=== PATIENT | female | born 1990 | race Caucasian/White ===

== ENCOUNTER 2018-12-01 22:00 | Inpatient (IN) | payer MEDICAID ==
[~2018-12-01] VITALS: Ht 165.1 cm; Wt 52.2 kg
[~2018-12-01 22:00] MED LIST: ALBU18HF2 INH; GABA600T13 PO; GUAI118S13 PO; HUM7525 SQ; IBUP-1985 PO; LANTUS SQ; LOPE2CAP PO; TRAZ-219 PO; VENL37.55 PO
[2018-12-02] VITALS (20 sets, daily range): BP systolic 101–170; BP diastolic 52–115
--- NOTE | 2018-12-02 03:45 | NUR ---
Patient arrived via [facility]. Transport report from Roni, Detective Bureau Chief. Patient had an uneventful transport. Was administered 0.5mg Ativan IV at [facility]. Patient with D5 1/2 normal saline at 75ml/hr running. Patient with BiPap in place FiO2 75%. PAtient transferred to hospital bed from [facility] with slide board. Patient placed on BiPap unit by RT. Vital signs assessed. Chest X-Ray ordered to confirm placement of PICC to right upper arm. Right upper arm Single lumen extended. IV is an extended confirmed by x-ray to right arm.
[2018-12-02] MEDS ORDERED: acetaminophen 650mg rectal suppository RC PRN (03:50)
[2018-12-02] MEDS ORDERED: glucagon, human recombinant 1mg kit SUBCUT PRN (03:50)
[2018-12-02] MEDS ORDERED: morphine 4 MG/ML inj SYRINge IV PRN ×2 (03:50)
[2018-12-02] MEDS ORDERED: dextrose 50%-water 50ml dispensing syringe IV PRN ×2 (03:50)
[2018-12-02] MEDS ORDERED: dextrose ORAL solution 15 GM/59 ML bottle PO PRN ×2 (03:50)
[2018-12-02] MEDS ORDERED: acetaminophen 325mg tablet PO PRN ×2 (03:50)
[2018-12-02] MEDS ORDERED: MESSAGE TO PHARMACY PO ONE (03:50)
[2018-12-02] MEDS ORDERED: albuterol 2.5 MG/3 ML nebule NEB PRN (04:10)
[2018-12-02 04:21] LABS: ABG BASE EXCESS -6.2 mmol/L (-2.0-3.0); ABG HCO3 19.8 mmol/L (22.0-26.0); ABG OXYGEN SATURATION 99.5 % (95-98); ABG PCO2 (T) 41.3 mmHg (32.0-45.0); ABG PH (T) 7.299 (7.350-7.450); ABG PO2 (T) 258.8 mmHg (83-108); ALLEN'S TEST Positive; FCOHb 0.3 % (0.5-1.5); FMetHb 0.2 % (0.3-1.12); RESPIRATORY RATE 12 b/min; RESPIRATORY RATE (OBSERVED) 28 b/min; TOTAL HEMOGLOBIN 11.3 G/dl (12.0-16.0)
[2018-12-02] MEDS ORDERED: HYDROmorphone 1 mg/ml syringe IV PRN (04:25)
--- NOTE | 2018-12-02 04:45 | NUR ---
Patient belongings: Patient had purse with her at the bedside. Wallet containing $105 nichole, change, State issued ID and SS card., Bank card. Admitting called to place wallet in safe. Medications sent to pharmacy. Purse also contained one up opened pack of cigarettes, security shift manager, glucometer, and other items ( chapstick, mints, etc)
--- NOTE | 2018-12-02 04:51 | NUR ---
wound care pictures obtained, wound care consult placed message left.
[2018-12-02] MEDS ORDERED: LORazepam 2 mg/ml vial IV PRN (05:10)
[2018-12-02] MEDS ORDERED: furosemide 20 MG/2 ML vial IV ONE (05:10)
[2018-12-02 06:03] LABS: BASOPHILS # (AUTO) 0.1 X10'3 (0-0.2); BASOPHILS % (AUTO) 0.4 % (0-1); EOSINOPHILS # (AUTO) 0.5 X10'3 (0-0.9); HEMATOCRIT 33.9 % (35.0-45.0); HEMOGLOBIN 10.7 g/dl (12.0-16.0); LYMPHOCYTES # (AUTO) 1.4 X10'3 (1.1-4.8); LYMPHOCYTES % (AUTO) 5.8 % (21-51); MEAN CORPUSCULAR HEMOGLOBIN 29.7 PG (27.0-31.0); MEAN CORPUSCULAR HGB CONC 31.6 g/dL (33.0-36.5); MEAN PLATELET VOLUME 9.8 FL (7.4-10.4); MONOCYTES # (AUTO) 1.3 X10'3 (0-0.9); MONOCYTES % (AUTO) 5.5 % (2-12); NEUTROPHILS # (AUTO) 20.1 X10'3 (1.8-7.7); NEUTROPHILS % (AUTO) 86.3 % (42-75); PLATELET COUNT 286 X10'3 (140-440); RED CELL DISTRIBUTION WIDTH 15.9 % (11.5-14.5); WHITE BLOOD COUNT 23.2 X10'3 (4.5-11.0)
[2018-12-02] MEDS: HYDROmorphone inj. 0.5 MG/0.5 ML DISP.SYRIN IV PRN ×5 (06:10→22:24)
[2018-12-02 06:17] LABS: ALANINE AMINOTRANSFERASE 18 U/L (12-78); ALBUMIN 1.8 G/DL (3.4-5.0); ALBUMIN/GLOBULIN RATIO 0.4 (1.1-1.5); ALKALINE PHOSPHATASE 282 IU/L (46-116); ANION GAP 12 (8-16); ASPARTATE AMINO TRANSFERASE 36 U/L (10-37); BILIRUBIN,TOTAL 0.4 MG/DL (0.1-1.0); BLOOD UREA NITROGEN 16 MG/DL (7-18); BUN/CREATININE RATIO 13.1 (6.6-38.0); CALCIUM 8.4 MG/DL (8.5-10.1); CHLORIDE 107 MMOL/L (99-107); CREATININE 1.22 MG/DL (0.40-0.90); GLUCOSE 358 MG/DL (70-104); POTASSIUM 4.2 MMOL/L (3.5-5.1); SODIUM 139 MMOL/L (135-145); TOTAL CARBON DIOXIDE 20.4 MMOL/L (24-32); TOTAL PROTEIN 6.3 G/DL (6.4-8.2); eGFR 53 ML/MIN
--- NOTE | 2018-12-02 06:26 | NUR ---
report given to rec rn plan of care reviewed
[2018-12-02 06:27] LABS: D-DIMER 5.73 MG/L FEU (0-0.50); INR 1.2 INR; MAGNESIUM 1.8 MG/DL (1.5-2.4); PARTIAL THROMBOPLASTIN TIME 39 SECONDS (22-32); PROTHROMBIN TIME 11.9 SECONDS (9.0-12.0); TROPONIN I < 0.04 NG/ML (0.0-0.05)
[2018-12-02 06:30] LABS: HEMOGLOBIN A1C 9.4 % (4.5-6.2)
[2018-12-02 06:40] LABS: PLATELET ESTIMATE NORMAL; TOTAL CELLS COUNTED 100
[2018-12-02 06:41] LABS: TOXIC GRANULATION 1+
[2018-12-02] MEDS: normal saline 1000ml 1,000 ML IV SCH (07:00)
[2018-12-02] MEDS: insulin Lispro (HumaLOG) vial - multi-dose SQ SCH ×4 (07:13→21:01)
[2018-12-02] MEDS: ondansetron/PF 4mg/2ml inj IV PRN ×2 (07:17→21:24)
[2018-12-02] MEDS: piperacillin/tazo 3.375gm/50ml 50 ML IV SCH ×3 (07:30→22:24)
[2018-12-02] MEDS ORDERED: gabapentin 300mg capsule PO SCH (08:00)
[2018-12-02] MEDS ORDERED: FONDAPARINUX (ARIXTRA) 7.5 MG/0.6 ML SYRINGE SQ SCH (08:00)
[2018-12-02] MEDS ORDERED: lisinopril 20mg tablet PO SCH (08:00)
[2018-12-02] MEDS ORDERED: vancomycin/NS 1 GM ADD-VANTAGE 250 ML IV SCH (08:00)
[2018-12-02] MEDS: ipratropium/albuterol 3ml nebule NEB SCH ×5 (08:04→22:51)
[2018-12-02] MEDS ORDERED: fondaparinux 2.5 MG/0.5 ML syringe SUBCUT SCH ×2 (09:06→11:20)
[2018-12-02] MEDS ORDERED: TRAM50TA2 PO ×2 (09:09→16:50)
[2018-12-02] MEDS: aspirin 81mg tablet.DR PO SCH (10:02)
[2018-12-02] MEDS: CITALOpram 10mg tablet PO SCH (10:02)
[2018-12-02] MEDS: docusate sod 100mg capsule PO SCH ×2 (10:02→20:00)
[2018-12-02] MEDS: pantoprazole 40 MG vial IV SCH (10:03)
[2018-12-02] MEDS: QUEtiapine 25mg tablet PO SCH (10:03)
[2018-12-02] MEDS: pregabalin 25mg capsule PO SCH ×2 (10:03→20:48)
[2018-12-02] MEDS: methylPREDNISolone sod succ 125mg/2ml vial IV SCH ×3 (10:03→20:48)
[2018-12-02] MEDS: VANCOMYCIN 750MG IV in NS 250 ML IV SCH ×2 (10:04→20:47)
[2018-12-02] MEDS ORDERED: fondaparinux 2.5 MG/0.5 ML syringe SUBCUT ONE (11:20)
[2018-12-02] MEDS: gabapentin 300mg capsule PO SCH ×2 (12:06→20:48)
[2018-12-02] MEDS ORDERED: INSU300I3 SQ (13:30)
[2018-12-02] MEDS: furosemide 20 MG/2 ML vial IV SCH ×2 (14:04→20:48)
--- NOTE | 2018-12-02 15:55 | NUR ---
DM consult, A1C is 9.4 and history of type 1 diabetes; patient needs written DM education handout with verbal review and referral to outpatient DM education class when she is able, currently on BiPap and will become very short of breath, is not appropriate for bedside education. Patient admitted with acute respiratory distress syndrome and DKA, DKA is resolved per MD note. Recommend: 1. When medically indicated advance diet to carb controlled 2. Continue bowel care 3. Weight per rx 4. Education: provide written and verbal DM education when pt is able Addendum: 12/02/18 at [address] Amended: Links added.
--- NOTE | 2018-12-02 16:22 | NUR ---
off BIPAP to NC Patient taken off BIPAP placed on NC 4L has handled well so far.
[2018-12-02] MEDS ORDERED: LISI-600 PO (16:50)
[2018-12-02] MEDS ORDERED: LORA1TAB PO (16:50)
[2018-12-02] MEDS ORDERED: LOPE2CAP PO (16:50)
[2018-12-02] MEDS ORDERED: PREG50CA PO (16:50)
[2018-12-02] MEDS ORDERED: FOND7.5D9 SQ (16:50)
[2018-12-02] MEDS ORDERED: CITA20TA19 PO (16:50)
[2018-12-02] MEDS ORDERED: ASPI-611 PO (16:50)
[2018-12-02] MEDS ORDERED: ONDA4TAB12 PO (16:50)
[2018-12-02] MEDS ORDERED: QUET50TA22 PO (16:50)
--- NOTE | 2018-12-02 18:30 | NUR ---
Patient in room CICU 2013. I have received report from CRUZ Lynn and had the opportunity to ask questions and assume patient care. Patient is resting comfortably in hospital bed, she has asked for broth or food. I advised her I will check with her MD as she is NPO at this time.
--- NOTE | 2018-12-02 20:00 | NUR ---
Patient continues to ask for food, I JIM Whitney and she gave order for clear liquid diet as tolerated.
--- NOTE | 2018-12-02 21:00 | NUR ---
Talked with JIM Teran regarding patients high BP 170/105. Patient has been fighting BP cuff all night, she either bends arm or pulls at cuff when BP is being taken. Per September, continue to monitor she noted that her lisinopril was d/c and I could give her a dose if BP continue to be high.
[2018-12-02] MEDS: insulin glargine (Lantus) pen - multi-dose SQ SCH (21:02)
[2018-12-03] VITALS (24 sets, daily range): BP systolic 120–175; BP diastolic 67–112
[2018-12-03] MEDS: HYDROmorphone inj. 0.5 MG/0.5 ML DISP.SYRIN IV PRN ×5 (02:25→21:03)
[2018-12-03] MEDS: furosemide 20 MG/2 ML vial IV SCH ×4 (02:25→19:14)
[2018-12-03] MEDS: methylPREDNISolone sod succ 125mg/2ml vial IV SCH ×2 (02:25→08:11)
[2018-12-03] MEDS: ipratropium/albuterol 3ml nebule NEB SCH ×6 (02:57→23:01)
[2018-12-03] MEDS: ondansetron/PF 4mg/2ml inj IV PRN (04:12)
[2018-12-03] MEDS ORDERED: lisinopril 20mg tablet PO ONE (05:20)
[2018-12-03] MEDS: piperacillin/tazo 3.375gm/50ml 50 ML IV SCH ×3 (05:25→23:06)
[2018-12-03 05:52] LABS: BASOPHILS % (AUTO) 0.3 % (0-1); EOSINOPHILS % (AUTO) 0.2 % (0-6); HEMATOCRIT 35.1 % (35.0-45.0); HEMOGLOBIN 11.4 g/dl (12.0-16.0); LYMPHOCYTES # (AUTO) 0.9 X10'3 (1.1-4.8); LYMPHOCYTES % (AUTO) 7.1 % (21-51); MEAN CORPUSCULAR HEMOGLOBIN 30.1 PG (27.0-31.0); MEAN CORPUSCULAR HGB CONC 32.4 g/dL (33.0-36.5); MEAN CORPUSCULAR VOLUME 93.2 FL (78-98); MEAN PLATELET VOLUME 9.4 FL (7.4-10.4); MONOCYTES # (AUTO) 0.5 X10'3 (0-0.9); NEUTROPHILS # (AUTO) 10.8 X10'3 (1.8-7.7); NEUTROPHILS % (AUTO) 88.4 % (42-75); PLATELET COUNT 331 X10'3 (140-440); RED BLOOD COUNT 3.77 X10'6 (4.20-5.60); WHITE BLOOD COUNT 12.2 X10'3 (4.5-11.0)
[2018-12-03 06:19] LABS: ALANINE AMINOTRANSFERASE 17 U/L (12-78); ALBUMIN 1.9 G/DL (3.4-5.0); ALBUMIN/GLOBULIN RATIO 0.4 (1.1-1.5); ALKALINE PHOSPHATASE 261 IU/L (46-116); ANION GAP 8 (8-16); ASPARTATE AMINO TRANSFERASE 17 U/L (10-37); BILIRUBIN,TOTAL 0.3 MG/DL (0.1-1.0); BLOOD UREA NITROGEN 20 MG/DL (7-18); BUN/CREATININE RATIO 17.9 (6.6-38.0); CALCIUM 8.4 MG/DL (8.5-10.1); CHLORIDE 103 MMOL/L (99-107); CREATININE 1.12 MG/DL (0.40-0.90); GLUCOSE 385 MG/DL (70-104); MAGNESIUM 1.2 MG/DL (1.5-2.4); PHOSPHORUS 3.4 MG/DL (2.3-4.5); SODIUM 139 MMOL/L (135-145); TOTAL CARBON DIOXIDE 28.1 MMOL/L (24-32); TOTAL PROTEIN 6.5 G/DL (6.4-8.2); eGFR 59 ML/MIN
[2018-12-03 06:27] LABS: INR 1.2 INR; PROTHROMBIN TIME 11.8 SECONDS (9.0-12.0)
[2018-12-03 06:28] LABS: PARTIAL THROMBOPLASTIN TIME 33 SECONDS (22-32)
--- NOTE | 2018-12-03 06:34 | NUR ---
Problems reprioritized. Patient report given, questions answered & plan of care reviewed with CRUZ Escobedo.
--- NOTE | 2018-12-03 07:00 | NUR ---
Patient in room CICU 2013. I have received report from CRUZ Bonilla and had the opportunity to ask questions and assume patient care.
[2018-12-03] MEDS ORDERED: labetalol 100mg tablet PO ONE (07:55)
[2018-12-03] MEDS: docusate sod 100mg capsule PO SCH ×2 (08:00→19:14)
[2018-12-03] MEDS: VANCOMYCIN 750MG IV in NS 250 ML IV SCH ×2 (08:10→20:58)
[2018-12-03] MEDS: pantoprazole 40 MG vial IV SCH (08:12)
[2018-12-03] MEDS: pregabalin 25mg capsule PO SCH ×2 (08:12→19:13)
[2018-12-03] MEDS: aspirin 81mg tablet.DR PO SCH (08:12)
[2018-12-03] MEDS: CITALOpram 10mg tablet PO SCH (08:12)
[2018-12-03] MEDS: QUEtiapine 25mg tablet PO SCH ×2 (08:12→20:54)
[2018-12-03] MEDS: gabapentin 300mg capsule PO SCH ×3 (08:13→20:54)
[2018-12-03] MEDS ORDERED: citalopram 20mg tablet PO SCH (08:35)
[2018-12-03] MEDS ORDERED: traMADol 50MG tablet PO PRN (08:35)
[2018-12-03] MEDS ORDERED: loperamide 2mg capsule PO PRN (08:35)
[2018-12-03] MEDS ORDERED: LORazepam 1 MG tablet PO PRN (08:35)
[2018-12-03] MEDS ORDERED: ondansetron 4mg rapidly disintigrating tab PO PRN (08:35)
[2018-12-03] MEDS: insulin Lispro (HumaLOG) vial - multi-dose SQ SCH ×4 (08:45→21:03)
[2018-12-03] MEDS: FONDAPARINUX (ARIXTRA) 7.5 MG/0.6 ML SYRINGE SQ SCH (09:15)
[2018-12-03] MEDS ORDERED: potassium Cl 20 mEq SR tablet PO PRN (10:45)
[2018-12-03] MEDS: traMADol 50MG tablet PO PRN ×2 (11:38→19:13)
[2018-12-03] MEDS: magnesium Cl slow-release 64mg tablet PO PRN ×2 (11:38→20:54)
--- NOTE | 2018-12-03 14:29 | NUR ---
DM consult, A1C is 9.4 and history of type 1 diabetes; attempted education today RD visited pt at bedside and was using BiPaP at that time. Carb controlled lunch was not eaten yet. Per nurse BiPaP had been on for only 15 minutes. Patient was emotional and wanting to eat, attempted to explain A1C and patient stated she already knows what it meals. Written DM education was left at bedside. She has no chewing or swallowing difficulty when BiPaP is off. Addendum: 12/03/18 at [address] Amended: Links added.
--- NOTE | 2018-12-03 14:30 | NUR ---
Pt had one episode of desaturation and need for bipap. Pt's sats read 30-40% with good pleth and pulse matching ekg rate. New pulse ox obtained and placed on 2 different fingers and both ears to verify reading. Mobile pulse ox also used. All had same reading of sats in 30s-40s. Pt awake, talking, playing on her phone and in no signs of respiratory distress. Placed pt on bipap at 100% FiO2 and pt's sats jumped back up to 100%. Left pt on bipap for 10 mins. Pt talking and asking for bipap to be removed the entire time. Stat CXR and ABG obtained. Dr. Oliveira notified and gave verbal orders to keep pt in ICU overnight. Will continue to monitor
[2018-12-03 15:51] LABS: ABG BASE EXCESS 7.3 mmol/L (-2.0-3.0); ABG HCO3 32.6 mmol/L (22.0-26.0); ABG OXYGEN SATURATION 95.8 % (95-98); ABG PH (T) 7.441 (7.350-7.450); ABG PO2 (T) 76.5 mmHg (83-108); ALLEN'S TEST Positive; FCOHb 0.2 % (0.5-1.5); FLOW 3 L/min; FMetHb 0.3 % (0.3-1.12); FO2Hb 95.3 % (94-100); TOTAL HEMOGLOBIN 12.1 G/dl (12.0-16.0)
--- NOTE | 2018-12-03 18:14 | NUR ---
Problems reprioritized. Patient report given, questions answered & plan of care reviewed with CRUZ Bacon.
--- NOTE | 2018-12-03 18:15 | NUR ---
Patient in room CICU 2013. I have received report from CRUZ Escobedo, and had the opportunity to ask questions and assume patient care.
--- NOTE | 2018-12-03 18:30 | NUR ---
Pt served dinner without incident. Pt able to feed self, no needs or requests at this time.
[2018-12-03] MEDS: metoprolol tartrate 25mg tablet PO SCH (19:13)
[2018-12-03] MEDS: lisinopril 20mg tablet PO SCH (19:13)
[2018-12-03] MEDS ORDERED: VANCOMYCIN LEVEL IV NR (20:30)
[2018-12-03] MEDS: insulin glargine (Lantus) pen - multi-dose SQ SCH (21:02)
--- NOTE | 2018-12-03 22:00 | NUR ---
Vanco trough 18.6. No changes to current vanco infusion necessary per Marcin in pharmacy.
[2018-12-03] MEDS: normal saline 1000ml 1,000 ML IV SCH (23:03)
--- NOTE | 2018-12-03 23:30 | NUR ---
Pt states that she feels like her "blood sugar is low". BG 109, pt states that this is low for her. Snack given.
[2018-12-04] VITALS (14 sets, daily range): BP systolic 92–141; BP diastolic 53–89
[2018-12-04] MEDS: furosemide 20 MG/2 ML vial IV SCH ×4 (01:11→20:27)
[2018-12-04] MEDS: HYDROmorphone inj. 0.5 MG/0.5 ML DISP.SYRIN IV PRN ×5 (01:11→20:51)
[2018-12-04 01:46] LABS: ALANINE AMINOTRANSFERASE 14 U/L (12-78); ALBUMIN 2.1 G/DL (3.4-5.0); ALBUMIN/GLOBULIN RATIO 0.5 (1.1-1.5); ALKALINE PHOSPHATASE 229 IU/L (46-116); ANION GAP 2 (8-16); ASPARTATE AMINO TRANSFERASE 10 U/L (10-37); BILIRUBIN,TOTAL 0.3 MG/DL (0.1-1.0); BLOOD UREA NITROGEN 20 MG/DL (7-18); BUN/CREATININE RATIO 16.9 (6.6-38.0); CALCIUM 8.1 MG/DL (8.5-10.1); CHLORIDE 100 MMOL/L (99-107); CREATININE 1.18 MG/DL (0.40-0.90); GLUCOSE 140 MG/DL (70-104); PHOSPHORUS 2.2 MG/DL (2.3-4.5); SODIUM 140 MMOL/L (135-145); TOTAL CARBON DIOXIDE 38.4 MMOL/L (24-32); TOTAL PROTEIN 6.4 G/DL (6.4-8.2); eGFR 55 ML/MIN
[2018-12-04 01:53] LABS: POTASSIUM 2.6 MMOL/L (3.5-5.1)
[2018-12-04 01:55] LABS: BASOPHILS # (AUTO) 0.1 X10'3 (0-0.2); BASOPHILS % (AUTO) 0.4 % (0-1); EOSINOPHILS # (AUTO) 0.5 X10'3 (0-0.9); EOSINOPHILS % (AUTO) 3.4 % (0-6); HEMATOCRIT 33.9 % (35.0-45.0); HEMOGLOBIN 11.2 g/dl (12.0-16.0); LYMPHOCYTES # (AUTO) 2.3 X10'3 (1.1-4.8); LYMPHOCYTES % (AUTO) 15.3 % (21-51); MEAN CORPUSCULAR HEMOGLOBIN 30.5 PG (27.0-31.0); MEAN CORPUSCULAR HGB CONC 33.1 g/dL (33.0-36.5); MEAN CORPUSCULAR VOLUME 92.3 FL (78-98); MEAN PLATELET VOLUME 8.6 FL (7.4-10.4); MONOCYTES # (AUTO) 1.3 X10'3 (0-0.9); MONOCYTES % (AUTO) 8.7 % (2-12); NEUTROPHILS # (AUTO) 10.7 X10'3 (1.8-7.7); NEUTROPHILS % (AUTO) 72.2 % (42-75); PLATELET COUNT 385 X10'3 (140-440); RED BLOOD COUNT 3.67 X10'6 (4.20-5.60); RED CELL DISTRIBUTION WIDTH 15.5 % (11.5-14.5); WHITE BLOOD COUNT 14.9 X10'3 (4.5-11.0)
[2018-12-04 01:56] LABS: INR 1.2 INR; PARTIAL THROMBOPLASTIN TIME 33 SECONDS (22-32); PROTHROMBIN TIME 12.3 SECONDS (9.0-12.0)
[2018-12-04] MEDS: magnesium Cl slow-release 64mg tablet PO PRN ×2 (02:15→07:32)
[2018-12-04] MEDS: potassium Cl 20 mEq SR tablet PO PRN ×3 (02:15→13:25)
[2018-12-04] MEDS: ipratropium/albuterol 3ml nebule NEB SCH ×6 (03:00→23:00)
[2018-12-04] MEDS ORDERED: lactulose 20gm/30ml cup PO PRN (03:50)
[2018-12-04] MEDS: piperacillin/tazo 3.375gm/50ml 50 ML IV SCH ×3 (05:32→22:48)
--- NOTE | 2018-12-04 06:21 | NUR ---
Problems reprioritized. Patient report given, questions answered & plan of care reviewed with CRUZ Escobedo.
--- NOTE | 2018-12-04 06:36 | NUR ---
Patient in room CICU 2013. I have received report from CRUZ Bacon and had the opportunity to ask questions and assume patient care.
[2018-12-04] MEDS: FONDAPARINUX (ARIXTRA) 7.5 MG/0.6 ML SYRINGE SQ SCH (07:32)
[2018-12-04] MEDS: CITALOpram 10mg tablet PO SCH (07:32)
[2018-12-04] MEDS: pregabalin 25mg capsule PO SCH ×2 (07:32→20:28)
[2018-12-04] MEDS: pantoprazole 40mg Tablet.DR PO SCH (07:33)
[2018-12-04] MEDS: metoprolol tartrate 25mg tablet PO SCH ×2 (07:33→20:28)
[2018-12-04] MEDS: aspirin 81mg tablet.DR PO SCH (07:33)
[2018-12-04] MEDS: lisinopril 20mg tablet PO SCH ×2 (07:33→20:28)
[2018-12-04] MEDS: gabapentin 300mg capsule PO SCH ×3 (07:34→20:29)
[2018-12-04] MEDS: potassium chloride 10mEq ER tablet PO SCH ×2 (07:34→20:29)
[2018-12-04] MEDS: loperamide 2mg capsule PO PRN ×2 (07:34→19:03)
[2018-12-04] MEDS: docusate sod 100mg capsule PO SCH ×2 (07:41→20:00)
[2018-12-04] MEDS: VANCOMYCIN 750MG IV in NS 250 ML IV SCH ×2 (08:44→20:50)
[2018-12-04] MEDS: insulin Lispro (HumaLOG) vial - multi-dose SQ SCH ×3 (08:51→21:34)
--- NOTE | 2018-12-04 14:20 | NUR ---
Gave report to surgical instrument maker Shakira. Pt transferred to surgical with tele via wheelchair. All belongings sent with pt.
[2018-12-04 16:54] LABS: ALANINE AMINOTRANSFERASE 18 U/L (12-78); ALBUMIN 2.2 G/DL (3.4-5.0); ALBUMIN/GLOBULIN RATIO 0.5 (1.1-1.5); ALKALINE PHOSPHATASE 226 IU/L (46-116); ANION GAP 7 (8-16); ASPARTATE AMINO TRANSFERASE 11 U/L (10-37); BILIRUBIN,TOTAL 0.3 MG/DL (0.1-1.0); BLOOD UREA NITROGEN 18 MG/DL (7-18); CALCIUM 7.9 MG/DL (8.5-10.1); CHLORIDE 101 MMOL/L (99-107); CREATININE 1.06 MG/DL (0.40-0.90); GLUCOSE 72 MG/DL (70-104); POTASSIUM 3.6 MMOL/L (3.5-5.1); SODIUM 144 MMOL/L (135-145); TOTAL CARBON DIOXIDE 35.9 MMOL/L (24-32); TOTAL PROTEIN 6.6 G/DL (6.4-8.2); eGFR 63 ML/MIN
--- NOTE | 2018-12-04 18:47 | NUR ---
Recieved report from Shakira ARROYO pt is awake and requesting a BSC
--- NOTE | 2018-12-04 19:00 | NUR ---
pt refused humalog due to BS being 70, pt was concerned that her blood sugar would bottom out if she received insulin, informed pt we will check BS at 2100
[2018-12-04] MEDS: ondansetron/PF 4mg/2ml inj IV PRN (19:02)
[2018-12-04] MEDS: lactobacillus rhamnosus 10,000 MMU CELLS/CAPSULE PO SCH (20:29)
--- NOTE | 2018-12-04 20:30 | NUR ---
Rechecked pts B/P it was 128/71, HR:108
[2018-12-04] MEDS: QUEtiapine 25mg tablet PO SCH ×2 (20:35→21:31)
[2018-12-04] MEDS: insulin glargine (Lantus) pen - multi-dose SQ SCH (21:35)
--- NOTE | 2018-12-04 22:00 | NUR ---
pt has been picking at scabs on her head causing her to bleed, pt refused shower until the morning time when her mother was her to help her and so her mother could bring her shampoo, informed pt we have plenty of shampoo and aides to help she wanted to wait till morning, wrapped pts head in kerlex
[2018-12-05 00:09] VITALS: BP 120/84
[2018-12-05] MEDS: HYDROmorphone inj. 0.5 MG/0.5 ML DISP.SYRIN IV PRN ×5 (00:55→18:31)
[2018-12-05] MEDS: furosemide 20 MG/2 ML vial IV SCH ×4 (02:00→20:00)
[2018-12-05] MEDS: ipratropium/albuterol 3ml nebule NEB SCH ×6 (03:00→23:00)
[2018-12-05 03:54] LABS: BASOPHILS # (AUTO) 0.1 X10'3 (0-0.2); BASOPHILS % (AUTO) 1.2 % (0-1); EOSINOPHILS # (AUTO) 1.2 X10'3 (0-0.9); EOSINOPHILS % (AUTO) 10.2 % (0-6); HEMATOCRIT 41.1 % (35.0-45.0); LYMPHOCYTES # (AUTO) 3.8 X10'3 (1.1-4.8); LYMPHOCYTES % (AUTO) 33.4 % (21-51); MEAN CORPUSCULAR HEMOGLOBIN 29.7 PG (27.0-31.0); MEAN CORPUSCULAR HGB CONC 31.6 g/dL (33.0-36.5); MEAN CORPUSCULAR VOLUME 94.2 FL (78-98); MEAN PLATELET VOLUME 8.5 FL (7.4-10.4); MONOCYTES # (AUTO) 1.2 X10'3 (0-0.9); MONOCYTES % (AUTO) 10.8 % (2-12); NEUTROPHILS % (AUTO) 44.4 % (42-75); PLATELET COUNT 393 X10'3 (140-440); RED BLOOD COUNT 4.36 X10'6 (4.20-5.60); RED CELL DISTRIBUTION WIDTH 15.6 % (11.5-14.5); WHITE BLOOD COUNT 11.3 X10'3 (4.5-11.0)
[2018-12-05 04:05] LABS: ALANINE AMINOTRANSFERASE 11 U/L (12-78); ALBUMIN 2.2 G/DL (3.4-5.0); ALBUMIN/GLOBULIN RATIO 0.5 (1.1-1.5); ALKALINE PHOSPHATASE 219 IU/L (46-116); ANION GAP 4 (8-16); ASPARTATE AMINO TRANSFERASE 10 U/L (10-37); BILIRUBIN,TOTAL 0.3 MG/DL (0.1-1.0); BLOOD UREA NITROGEN 18 MG/DL (7-18); BUN/CREATININE RATIO 11.8 (6.6-38.0); CALCIUM 7.9 MG/DL (8.5-10.1); CHLORIDE 100 MMOL/L (99-107); CREATININE 1.53 MG/DL (0.40-0.90); GLUCOSE 233 MG/DL (70-104); MAGNESIUM 1.3 MG/DL (1.5-2.4); PHOSPHORUS 2.8 MG/DL (2.3-4.5); POTASSIUM 4.4 MMOL/L (3.5-5.1); SODIUM 139 MMOL/L (135-145); TOTAL CARBON DIOXIDE 34.8 MMOL/L (24-32); TOTAL PROTEIN 6.5 G/DL (6.4-8.2); eGFR 41 ML/MIN
[2018-12-05 04:19] LABS: INR 1.2 INR; PARTIAL THROMBOPLASTIN TIME 31 SECONDS (22-32); PROTHROMBIN TIME 11.7 SECONDS (9.0-12.0)
[2018-12-05] MEDS: piperacillin/tazo 3.375gm/50ml 50 ML IV SCH ×3 (05:34→22:59)
--- NOTE | 2018-12-05 06:36 | NUR ---
Gave report to Erika ARROYO pt is resting on RA, in no apparent distress, breaths even and unlabored, zosyn running@12.5mL/hr
[2018-12-05 07:00] VITALS: BP 105/64
[2018-12-05] MEDS: CITALOpram 10mg tablet PO SCH (07:23)
[2018-12-05] MEDS: gabapentin 300mg capsule PO SCH ×3 (07:23→21:03)
[2018-12-05] MEDS: potassium chloride 10mEq ER tablet PO SCH ×2 (07:23→21:03)
[2018-12-05] MEDS: pregabalin 25mg capsule PO SCH ×2 (07:23→21:03)
[2018-12-05] MEDS: lactobacillus rhamnosus 10,000 MMU CELLS/CAPSULE PO SCH ×2 (07:24→21:03)
[2018-12-05] MEDS: docusate sod 100mg capsule PO SCH ×2 (07:24→20:00)
[2018-12-05] MEDS: pantoprazole 40mg Tablet.DR PO SCH (07:24)
[2018-12-05] MEDS: aspirin 81mg tablet.DR PO SCH (07:25)
[2018-12-05] MEDS: QUEtiapine 25mg tablet PO SCH ×2 (07:25→20:35)
[2018-12-05] MEDS: metoprolol tartrate 25mg tablet PO SCH ×2 (07:39→20:00)
[2018-12-05] MEDS: lisinopril 20mg tablet PO SCH ×2 (07:39→20:00)
[2018-12-05 07:40] VITALS: BP 90/56
[2018-12-05] MEDS: insulin Lispro (HumaLOG) vial - multi-dose SQ SCH ×2 (10:11→14:09)
[2018-12-05 11:00] VITALS: BP 102/65
[2018-12-05] MEDS: VANCOMYCIN 750MG IV in NS 250 ML IV SCH ×2 (11:00→21:03)
[2018-12-05] MEDS: FONDAPARINUX (ARIXTRA) 7.5 MG/0.6 ML SYRINGE SQ SCH (11:01)
--- NOTE | 2018-12-05 11:23 | NUR ---
Reassessment: Acute resp failure d/t ARDS resolved and pt off BiPAP per MD progress notes. Documented PO intake previously 25% however up to 100% at breakfast this AM meeting nutrient needs. LBM 12/04. Will continue to follow. Recommend: 1. Continue CHO controlled diet 2. Continue bowel care 3. Weight per rx 4. Education: provide written and verbal DM education when pt is able Addendum: 12/05/18 at [address] Amended: Links added.
--- NOTE | 2018-12-05 14:12 | NUR ---
pt. stated she felt like her BG was dropping,pt. is fairly aware of the s/sx of low and high bg.Rechecked her BG after lunch. 201. Only will cover connectional dosing not nutritional.
--- NOTE | 2018-12-05 18:15 | NUR ---
Received report from Erika ARROYO pt is awake requesting pain meds, finishing dinner, call light and items of freq use within reach.
--- NOTE | 2018-12-05 18:27 | NUR ---
PT. AWAKE AND ALERT, IN A STABLE CONDITION, FLUIDS RUNNING AT 20/HR PER ORDER, JUST FINISHED HER DINNER AND RELAXED IN BED WATCHING TV. GAVE REPORT TO MICHAEL ARROYO.
--- NOTE | 2018-12-05 19:00 | NUR ---
pts blood sugar before dinner was 76, according to our protocol pt would be getting 5units of insulin to cover what pt ate for dinner, pt refused insulin for fear of her blood sugar falling to low I told her we will recheck blood sugar at 2100
[2018-12-05 19:55] VITALS: BP 91/64
[2018-12-05] MEDS: insulin glargine (Lantus) pen - multi-dose SQ SCH (21:06)
[2018-12-05] MEDS: normal saline 1000ml 1,000 ML IV SCH (22:59)
[2018-12-06] VITALS: BP 103/55
[2018-12-06] MEDS: HYDROmorphone inj. 0.5 MG/0.5 ML DISP.SYRIN IV PRN ×4 (01:12→13:38)
--- NOTE | 2018-12-06 01:26 | NUR ---
pt refused lasix stating she is done peeing for the night
[2018-12-06] MEDS: furosemide 20 MG/2 ML vial IV SCH ×4 (02:00→20:21)
[2018-12-06] MEDS: ipratropium/albuterol 3ml nebule NEB SCH ×5 (03:00→23:00)
[2018-12-06] MEDS: piperacillin/tazo 3.375gm/50ml 50 ML IV SCH ×2 (05:42→14:18)
[2018-12-06 05:53] LABS: INR 1.2 INR; PARTIAL THROMBOPLASTIN TIME 32 SECONDS (22-32); PROTHROMBIN TIME 11.6 SECONDS (9.0-12.0)
[2018-12-06 06:00] LABS: ALANINE AMINOTRANSFERASE 10 U/L (12-78); ALBUMIN 2.1 G/DL (3.4-5.0); ALBUMIN/GLOBULIN RATIO 0.5 (1.1-1.5); ALKALINE PHOSPHATASE 185 IU/L (46-116); ANION GAP 4 (8-16); ASPARTATE AMINO TRANSFERASE 10 U/L (10-37); BILIRUBIN,TOTAL 0.3 MG/DL (0.1-1.0); BLOOD UREA NITROGEN 19 MG/DL (7-18); CALCIUM 8.2 MG/DL (8.5-10.1); CHLORIDE 101 MMOL/L (99-107); CREATININE 1.46 MG/DL (0.40-0.90); GLUCOSE 270 MG/DL (70-104); MAGNESIUM 1.5 MG/DL (1.5-2.4); PHOSPHORUS 3.3 MG/DL (2.3-4.5); POTASSIUM 4.5 MMOL/L (3.5-5.1); SODIUM 138 MMOL/L (135-145); TOTAL CARBON DIOXIDE 32.9 MMOL/L (24-32); TOTAL PROTEIN 6.1 G/DL (6.4-8.2); eGFR 43 ML/MIN
[2018-12-06 06:04] LABS: BASOPHILS # (AUTO) 0.1 X10'3 (0-0.2); BASOPHILS % (AUTO) 1.1 % (0-1); EOSINOPHILS # (AUTO) 0.9 X10'3 (0-0.9); EOSINOPHILS % (AUTO) 8.4 % (0-6); HEMATOCRIT 38.4 % (35.0-45.0); HEMOGLOBIN 12.5 g/dl (12.0-16.0); LYMPHOCYTES # (AUTO) 2.9 X10'3 (1.1-4.8); LYMPHOCYTES % (AUTO) 28.6 % (21-51); MEAN CORPUSCULAR HEMOGLOBIN 30.1 PG (27.0-31.0); MEAN CORPUSCULAR HGB CONC 32.6 g/dL (33.0-36.5); MEAN CORPUSCULAR VOLUME 92.3 FL (78-98); MEAN PLATELET VOLUME 8.5 FL (7.4-10.4); MONOCYTES # (AUTO) 1.1 X10'3 (0-0.9); MONOCYTES % (AUTO) 10.7 % (2-12); NEUTROPHILS # (AUTO) 5.2 X10'3 (1.8-7.7); NEUTROPHILS % (AUTO) 51.2 % (42-75); PLATELET COUNT 408 X10'3 (140-440); RED BLOOD COUNT 4.16 X10'6 (4.20-5.60); RED CELL DISTRIBUTION WIDTH 15.3 % (11.5-14.5); WHITE BLOOD COUNT 10.1 X10'3 (4.5-11.0)
--- NOTE | 2018-12-06 06:10 | NUR ---
Patient in room [facility] 352. I have received report from CRUZ Woods and had the opportunity to ask questions and assume patient care. Patient resting comfortably at this time. In no apparent distress on room air. Call light and items of frequent use in reach of patient.
--- NOTE | 2018-12-06 06:24 | NUR ---
Gave report to Chelsea ARROYO pt is resting on RA in no apparent distress, call light and items of freq use within reach.
[2018-12-06 07:00] VITALS: BP 106/79
[2018-12-06] MEDS: lisinopril 20mg tablet PO SCH (08:00)
[2018-12-06] MEDS: docusate sod 100mg capsule PO SCH ×2 (08:00→20:00)
[2018-12-06] MEDS: insulin Lispro (HumaLOG) vial - multi-dose SQ SCH ×2 (08:51→20:17)
[2018-12-06] MEDS: pantoprazole 40mg Tablet.DR PO SCH (08:54)
[2018-12-06] MEDS: CITALOpram 10mg tablet PO SCH (08:55)
[2018-12-06] MEDS: lactobacillus rhamnosus 10,000 MMU CELLS/CAPSULE PO SCH ×2 (08:56→20:20)
[2018-12-06] MEDS: aspirin 81mg tablet.DR PO SCH (08:56)
[2018-12-06] MEDS: potassium chloride 10mEq ER tablet PO SCH ×2 (08:56→20:20)
[2018-12-06] MEDS: metoprolol tartrate 25mg tablet PO SCH ×2 (08:57→20:19)
[2018-12-06] MEDS: pregabalin 25mg capsule PO SCH ×2 (08:57→20:20)
[2018-12-06] MEDS: QUEtiapine 25mg tablet PO SCH (08:58)
[2018-12-06] MEDS: gabapentin 300mg capsule PO SCH ×3 (08:58→20:20)
[2018-12-06] MEDS: FONDAPARINUX (ARIXTRA) 7.5 MG/0.6 ML SYRINGE SQ SCH (09:00)
[2018-12-06] MEDS: VANCOMYCIN 750MG IV in NS 250 ML IV SCH (09:36)
--- NOTE | 2018-12-06 09:47 | NUR ---
O2 Sat at rest on room air:85% If below 89%: Recovery O2 Sat at rest on 1.0 LPM via nasal cannula: 95% No further documentation is necessary.
[2018-12-06 11:00] VITALS: BP 99/64
--- NOTE | 2018-12-06 12:45 | NUR ---
Patient stated that she was feeling like she had low blood sugar. 1153 blood sugar checked and it was 55. 15 G of oral glucose given per protocol. Recheck at 1215 blood sugar was 34. Patient was diaphoretic and stated "I feel horrible" IV dextrose 25 mL was given and a recheck of blood sugar at 1235 was 119. Will continue to monitor patient.
[2018-12-06] MEDS: ondansetron/PF 4mg/2ml inj IV PRN (15:30)
[2018-12-06] MEDS: levoFLOXACIN-Levaquin 750MG/D5 150 ML IV SCH (15:54)
[2018-12-06] MEDS: loperamide 2mg capsule PO PRN (16:18)
--- NOTE | 2018-12-06 17:15 | NUR ---
Patient blood sugar was 486. Dr. Morrissey called and ordered 8 units of humalog to be given SQ now and to recheck blood sugar in an hour.
[2018-12-06] MEDS ORDERED: insulin Lispro (HumaLOG) vial - multi-dose SQ ONE ×2 (17:20→18:27)
--- NOTE | 2018-12-06 17:30 | NUR ---
Patient threatening to leave AMA due to not getting IV dilaudid. Patient tore ID band off and threw it on the floor. Patient yelling and cussing because she refuses to stay without pain medication. patient has tramadol available to her but refuses it stating, "that s doesn't work for me" Dr. Morrissey made aware.
[2018-12-06] MEDS: LORazepam 0.5 MG tablet PO PRN (17:55)
--- NOTE | 2018-12-06 18:20 | NUR ---
Problems reprioritized. Patient report given, questions answered & plan of care reviewed with CRUZ Woods. Patient very agitated at this time. Ativan already given. Call light and items of frequent use in reach of patient.
--- NOTE | 2018-12-06 18:20 | NUR ---
Received report from Nan RN pts current BS is 492 nan spoke with to give pt 10 units of insulin and recheck bs in an hour, pt is agitated about dilaudid being D/C pt stated she wanted her Ultram
--- NOTE | 2018-12-06 18:21 | NUR ---
Recheck of blood sugar after 8 units of humalog was 492. Dr. Morrissey notified. Dr. Morrissey ordered an additional 10 units of humalog to be given SQ and to recheck the sugar again in one hour. would like NOC nurse to inform NOC MD about the blood sugar recheck. CRUZ Woods notified.
[2018-12-06] MEDS: traMADol 50MG tablet PO PRN ×2 (18:23→22:24)
[2018-12-06 19:00] VITALS: BP 117/68
--- NOTE | 2018-12-06 20:25 | NUR ---
pt refused to let me perform physical assessment, I was able to assess pts skin as it was exposed because pt was uncovered, I was not able to listen to heart, lungs, or stomach
[2018-12-06] MEDS: insulin glargine (Lantus) pen - multi-dose SQ SCH (21:54)
--- NOTE | 2018-12-06 22:55 | NUR ---
2230 pt stated she felt her blood sugar was low, checked blood sugar 44 gave two glucose shots, rechecked bs 2250 bs was 67, pt refused another glucose drink, stated she would drink a juice and eat collin crackers will recheck blood sugar at 2315
--- NOTE | 2018-12-06 23:23 | NUR ---
Informed of low blood sugar of 44 informed him i followed protocol and treated pt current blood sugar is 131
[2018-12-07 00:18] VITALS: BP 94/52
[2018-12-07] MEDS: traMADol 50MG tablet PO PRN ×2 (05:16→09:16)
--- NOTE | 2018-12-07 05:20 | NUR ---
gave pt pain meds and andres her blood at first pt refused to let me draw blood stating no you are not drawing my blood I am being discharged today, then changed her mind. Pt stated she did not want to be woken up again until her breakfast comes.
--- NOTE | 2018-12-07 06:19 | NUR ---
Gave report to Chelsea ARROYO pt is resting on RA breaths even and unlabored, call light within reach.
[2018-12-07 06:20] LABS: ALANINE AMINOTRANSFERASE 10 U/L (12-78); ALBUMIN 2.4 G/DL (3.4-5.0); ALBUMIN/GLOBULIN RATIO 0.5 (1.1-1.5); ALKALINE PHOSPHATASE 192 IU/L (46-116); ANION GAP 6 (8-16); ASPARTATE AMINO TRANSFERASE 8 U/L (10-37); BILIRUBIN,TOTAL 0.2 MG/DL (0.1-1.0); BLOOD UREA NITROGEN 22 MG/DL (7-18); CHLORIDE 99 MMOL/L (99-107); CREATININE 1.22 MG/DL (0.40-0.90); GLUCOSE 334 MG/DL (70-104); POTASSIUM 5.6 MMOL/L (3.5-5.1); SODIUM 133 MMOL/L (135-145); TOTAL CARBON DIOXIDE 28.3 MMOL/L (24-32); TOTAL PROTEIN 6.8 G/DL (6.4-8.2); eGFR 53 ML/MIN
--- NOTE | 2018-12-07 06:25 | NUR ---
Patient in room N[facility] 352. I have received report from CRUZ Woods and had the opportunity to ask questions and assume patient care. patient resting comfortably at this time. Call light and items of frequent use in reach of patient.
[2018-12-07 07:00] VITALS: BP 102/74
--- NOTE | 2018-12-07 07:30 | NUR ---
Patient very agitated at this time. Patient stating, "I don't want anyone coming into my room until I eat". Patient was educated that we are here to treat her and to get her healthy enough to go home. Patient still agitated and yelling profanity.
[2018-12-07] MEDS: docusate sod 100mg capsule PO SCH (08:00)
[2018-12-07] MEDS: furosemide 20 MG/2 ML vial IV SCH (08:00)
[2018-12-07] MEDS ORDERED: lisinopril 10 MG tablet PO SCH (08:00)
[2018-12-07] MEDS: insulin Lispro (HumaLOG) vial - multi-dose SQ SCH (08:54)
[2018-12-07] MEDS: pantoprazole 40mg Tablet.DR PO SCH (08:55)
[2018-12-07] MEDS: levoFLOXACIN-Levaquin 750MG/D5 150 ML IV SCH (08:55)
[2018-12-07] MEDS: CITALOpram 10mg tablet PO SCH (08:56)
[2018-12-07] MEDS: lactobacillus rhamnosus 10,000 MMU CELLS/CAPSULE PO SCH (08:57)
[2018-12-07] MEDS: pregabalin 25mg capsule PO SCH (09:00)
[2018-12-07] MEDS: aspirin 81mg tablet.DR PO SCH (09:00)
[2018-12-07] MEDS: metoprolol tartrate 25mg tablet PO SCH (09:00)
[2018-12-07] MEDS: gabapentin 300mg capsule PO SCH (09:01)
[2018-12-07] MEDS: loperamide 2mg capsule PO PRN (09:01)
[2018-12-07] MEDS: LORazepam 0.5 MG tablet PO PRN (09:01)
[2018-12-07] MEDS: QUEtiapine 25mg tablet PO SCH (09:01)
[2018-12-07] MEDS: FONDAPARINUX (ARIXTRA) 7.5 MG/0.6 ML SYRINGE SQ SCH (09:02)
--- NOTE | 2018-12-07 09:20 | NUR ---
Patient still very agitated and crying loudly. Patient given Ativan to help with patient anxiety. Patient stated that she will be leaving at 1200 even if she is not discharged. When trying to go through patients medications with her at morning med pass, patient began screaming, "I don't care what you say or what you do!! Just give me my medications and leave me the hell alone". Patient was asked to stop yelling as there are other sick people in the hospital trying to get better. patient stated that she does not care. patient refused a physical assessment stating, "You don't know anything anyway!". Patient was educated on the fact that we need to be able to assess her heart and lungs so that we can have a better picture of what is going on in her body. Patient stated, " I want you out of my room and I don't want anyone to come in again". Will reassess patent's anxiety.
--- NOTE | 2018-12-07 10:00 | NUR ---
Dr. Morrissey in to see patient and said that he would like her blood sugar checked in an another hour (10:45) and if the level wasn't too low or too high then he would discharge her. Patient stated that she is leaving regardless. Will assess blood sugar at appropriate time.
--- NOTE | 2018-12-07 10:57 | NUR ---
Rechecked blood sugar and it was 375. Dr. Morrissey notified. Patient stating that she wants to leave and that we all need to hurry up. patient educated about discharge paperwork and that once given the orders for discharge it can take 45min-1hour.
[2018-12-07 11:00] VITALS: BP 116/81
[2018-12-07] MEDS ORDERED: insulin Lispro (HumaLOG) vial - multi-dose SQ ONE (11:10)
--- NOTE | 2018-12-07 11:11 | NUR ---
Dr Morrissey called requesting that patients K+ be redrawn,. Dr Morrissey also aware patients blood sugar is 375 he would like us to give 8 units Humalog x1 and recheck patients blood sugar in 1 hour.
--- NOTE | 2018-12-07 11:51 | NUR ---
Patient left AMA. Extended PIV removed with cannula intact. Tele monitor removed. Patient last blood glucose level was [address] Morrissey had ordered to give patient 8 units of Humalog which was not given because patient refused. Patient stated she is done with all of this and she wants to get out of here. Redraw of K was sent down to lab. Dr. Morrissey and manager community relations notified of patient leaving AMA. Patient took all belongings with her.
--- NOTE | 2018-12-07 15:27 | NUR ---
Heather, surgical elementary secretary took patient home medications that were stored in pharmacy to patient in lobby. Heather, got the okay from charge and fish house worker to go ahead and give patient her home meds.
== END 2018-12-07 11:43 | disposition left against medical advice (07) | DRG 133 ==
LOC: ICU 2S 22:00 → CICU 2S 22:57 → SUR 3N 12-04 14:15
PROVIDERS: ADMIT Internal Medicine Critical Care Medicine; ATTEND Internal Medicine Critical Care Medicine
PROC: 5A09357 Assistance with Respiratory Ventilation, Less than 24 Consecutive Hours, Continuous Positive Airway Pressure (ICD-10-PCS; principal; 2018-12-02)
DX: J96.00 Acute respiratory failure, unspecified whether with hypoxia or hypercapnia (principal); J18.9 Pneumonia, unspecified organism; E10.40 Type 1 diabetes mellitus with diabetic neuropathy, unspecified; I11.0 Hypertensive heart disease with heart failure; I50.9 Heart failure, unspecified; E83.42 Hypomagnesemia; E87.5 Hyperkalemia; F41.8 Other specified anxiety disorders; R21 Rash and other nonspecific skin eruption; F17.200 Nicotine dependence, unspecified, uncomplicated; Z53.21 Procedure and treatment not carried out due to patient leaving prior to being seen by health care provider; F32.9 Major depressive disorder, single episode, unspecified; E87.6 Hypokalemia; F41.9 Anxiety disorder, unspecified; Z91.11 Patient's noncompliance with dietary regimen; Z86.711 Personal history of pulmonary embolism; Z79.01 Long term (current) use of anticoagulants; Z88.8 Allergy status to other drugs, medicaments and biological substances; Z56.0 Unemployment, unspecified
CPT/HCPCS: 36415; 36600; 71045; 80053; 80202; 82803; 82948; 83036; 83605; 83735; 83880; 84100; 84132; 84145; 84484; 85018; 85025; 85379; 85610; 85730; 86885; 86900; 86901; 87040; 87070; 93005; 93306; 93971; 94640; 94660; 94760; C9113; G0378; J1170; J1652; J1815; J1940; J1956; J2405; J2543; J2930; J3370; J7030